=== PATIENT | male | born 1970 ===

== ENCOUNTER → 2018-07-16 | Outpatient (CLI) | payer OTHER | LOC: LAB 09:25 ==

== ENCOUNTER 2018-08-04 19:35 | Emergency (ER) | payer SELFPAY ==
[2018-08-04 19:58] VITALS: BMI 28.5
[2018-08-04 20:37] LABS: PH,URINE 6.5 (4.7-8.0); URINE BILIRUBIN NEGATIVE (NEGATIVE); URINE BLOOD TRACE-LYSED (NEGATIVE); URINE GLUCOSE (UA) NEGATIVE (NEGATIVE); URINE LEUKOCYTE ESTERASE MODERATE Leu/uL (NEGATIVE); URINE PROTEIN NEGATIVE mg/dL (<30 mg/dL); URINE UROBILINOGEN 0.2 E.U./dL (<1 E.U./dL)
[2018-08-04 20:38] LABS: URINE APPEARANCE CLEAR (CLEAR); URINE COLOR LIGHT YELLOW (YELLOW)
[2018-08-04 20:43] LABS: URINE RBC 0 - 2 /hpf (0-2)
[2018-08-04 20:52] VITALS: BP 115/76; PULSE 74; RESP 19; TEMP 97.6; O2SAT 99
--- NOTE | 2018-08-04 21:37 | ED PDOC ---
Arrival/HPI - General Chief Complaint: Male Genitourinary Time Seen by Provider: 08/04/18 19:44 Historian: Patient - History of Present Illness Narrative History of Present Illness (Text): 08/04/18 21:34 48-year-old male presents today with a 3-week history of pain and irritation to the foreskin with slight dysuria. Patient states he has been having these issues on and off for the past 3 months. Patient states the last episode has lasted the past 3 weeks. Patient denies testicular pain. No chest pain or shortness of breath. He denies fevers or chills. He denies abdominal pain. No dizziness or weakness. Patient states it is painful to retract the foreskin because there are small cuts along the foreskin. No other complaints Past Medical History - Provider Review Nursing Documentation Reviewed: Yes - Travel History Have you recently traveled outside [place] w/in the past 3 mons?: No - Infectious Disease Hx of Infectious Diseases: None - Tetanus Immunization Tetanus Immunization: Unknown - Cardiac Hx Cardiac Disorders: No - Pulmonary Hx Respiratory Disorders: No - Neurological Hx Neurological Disorder: No - HEENT Hx HEENT Disorder: No - Renal Hx Renal Disorder: No - Endocrine/Metabolic Hx Endocrine Disorders: Yes (HYPERGLYCEMIA 1-23-16) Hx Diabetes Mellitus Type 2: Yes - Hematological/Oncological Hx Blood Disorders: No - Integumentary Hx Dermatological Disorder: No - Musculoskeletal/Rheumatological Hx Musculoskeletal Disorders: No Hx Falls: No - Gastrointestinal Hx Gastrointestinal Disorders: No - Genitourinary/Gynecological Hx Genitourinary Disorders: No - Psychiatric Hx Psychophysiologic Disorder: No Hx Depression: No Hx Emotional Abuse: No Hx Physical Abuse: No Hx Substance Use: No Other/Comment: OCCASIONAL DRINKS - Suicidal Assessment Feels Threatened In Home Enviroment: No Family/Social History - Physician Review Nursing Documentation Reviewed: Yes Family/Social History: Unknown Family HX Smoking Status: Never Smoked Hx Alcohol Use: Yes (OCCASIONALLY) Hx Substance Use: No Allergies/Home Meds Allergies/Adverse Reactions: Allergies shrimp Allergy (Verified 08/04/18 19:58) ANAPHYLAXIS Home Medications: Home Meds Medication Instructions Recorded Confirmed Glipizide [Glipizide ER] 5 mg PO DAILY 08/04/18 08/04/18 metFORMIN [glucOPHAGE] 1,000 mg PO BID 08/04/18 08/04/18 Review of Systems - Review of Systems Constitutional: absent: Fatigue, Fevers Respiratory: absent: SOB, Cough Cardiovascular: absent: Chest Pain, Palpitations Gastrointestinal: absent: Abdominal Pain, Nausea, Vomiting Genitourinary Male: Dysuria, Other (pain to foreskin). absent: Frequency, Hematuria, Urinary Output Changes Musculoskeletal: absent: Arthralgias, Back Pain, Neck Pain Skin: absent: Rash, Pruritis Neurological: absent: Headache, Dizziness Psychiatric: absent: Anxiety, Depression Physical Exam Vital Signs Reviewed: Yes Vital Signs Temp Pulse Resp BP Pulse Ox 08/04/18 20:52 97.6 F 74 19 115/76 99 08/04/18 19:59 98.4 F 80 18 112/72 95 Temperature: Afebrile Blood Pressure: Normal Pulse: Regular Respiratory Rate: Normal Appearance: Positive for: Well-Appearing, Non-Toxic, Comfortable Pain Distress: None Mental Status: Positive for: Alert and Oriented X 3 - Systems Exam Head: Present: Atraumatic Mouth: Present: Moist Mucous Membranes Respiratory/Chest: Present: Clear to Auscultation, Good Air Exchange. No: Respiratory Distress, Accessory Muscle Use Cardiovascular: Present: Regular Rate and Rhythm, Normal S1, S2. No: Murmurs Abdomen: No: Tenderness, Distention, Rebound, Guarding Genitourinary Male: Present: Other (there is slight erythema noted to the head of the penis; chaparoned by dr. rojo). No: Normal External Genitalia (erythema and abrasions to internal aspect of foreskin. no edema. ), Circumcised Penis, Penile Discharge, Testicle Tenderness, Penile Swelling Back: Present: Normal Inspection Neurological: Present: GCS=15 Skin: Present: Warm, Dry, Normal Color Psychiatric: Present: Alert, Oriented x 3 Medical Decision Making ED Course and Treatment: 08/04/18 21:38 48-year-old male with pain and irritation to the foreskin and head of the penis. There is no paraphimosis, there is no phimosis. We will treat the patient with Keflex for urinary tract infection as well as Lotrimin for balanitis Patient was advised to follow-up with a urologist within the next 2 days. Patient was advised to take medications as prescribed and return immediately if symptoms worsen persist or if new concerning symptoms develop Patient verbalizes understanding of discharge instructions and need for immediate followup. All aspects of this case were discussed the attending of record. Impression: Balanitis, UTI Motrin every 6 hours as needed for pain Keflex twice daily times 7 days Lotrimin apply twice daily to the affected area Keep the skin clean and dry. Follow-up with urologist within the next 2 days Return immediately if symptoms worsen persist or if new concerning symptoms develop: High fevers, increasing pain, increasing redness, increasing swelling, purulent discharge - Lab Interpretations Lab Results: Urine Color Light yellow (YELLOW) 08/04/18 20:30 Urine Appearance Clear (CLEAR) 08/04/18 20:30 Urine pH 6.5 (4.7-8.0) 08/04/18 20:30 Ur Specific [place] <= 1.005 (1.005-1.035) 08/04/18 20:30 Urine Protein Negative mg/dL (<30 mg/dL) 08/04/18 20:30 Urine Glucose (UA) Negative mg/dL (NEGATIVE) 08/04/18 20:30 Urine Ketones Negative mg/dL (NEGATIVE) 08/04/18 20:30 Urine Blood Trace-lysed (NEGATIVE) H 08/04/18 20:30 Urine Nitrate Negative (NEGATIVE) 08/04/18 20:30 Urine Bilirubin Negative (NEGATIVE) 08/04/18 20:30 Urine Urobilinogen 0.2 E.U./dL (<1 E.U./dL) 08/04/18 20:30 Ur Leukocyte Esterase Moderate Ariel/uL (NEGATIVE) H 08/04/18 20:30 Urine RBC 0 - 2 /hpf (0-2) 08/04/18 20:30 Urine WBC 1 - 3 /hpf (0-6) 08/04/18 20:30 Ur Epithelial Cells None /hpf (0-5) 08/04/18 20:30 - Medication Orders Current Medication Orders: Discontinued Medications Cephalexin Monohydrate (Keflex) 500 mg PO STAT STA; Protocol Stop: 08/04/18 20:55 Last Admin: 08/04/18 21:12 Dose: 500 mg Disposition/Present on Arrival - Present on Arrival Any Indicators Present on Arrival: Yes History of DVT/PE: No History of Uncontrolled Diabetes: Yes Urinary Catheter: No History of Decub. Ulcer: No History Surgical Site Infection Following: None - Disposition Have Diagnosis and Disposition been Completed?: Yes Diagnosis: Balanitis, Urinary tract infection Disposition: HOME/ ROUTINE Disposition Time: 21:00 Patient Plan: Discharge Condition: GOOD Discharge Instructions (ExitCare): Balanitis (DC), Urinary Tract Infection, Adult (DC) Additional Instructions: Motrin every 6 hours as needed for pain Keflex twice daily times 7 days Lotrimin apply twice daily to the affected area Keep the skin clean and dry. Follow-up with urologist within the next 2 days Return immediately if symptoms worsen persist or if new concerning symptoms develop: High fevers, increasing pain, increasing redness, increasing swelling, purulent discharge Prescriptions: Cephalexin [Keflex] 500 mg PO BID #14 capsule Clotrimazole 1% Cream [Lotrimin 1%] 1 appl TP BID #1 tube Ibuprofen [Motrin] 600 mg PO Q6H PRN #20 tab PRN Reason: pain/fever reduction Referrals: Ambreen Fine MD [Primary Care Provider] - Follow up with primary Michael Bustamante MD [Staff Provider] - Follow up with primary Forms: [facility] [facility] (Faroese), WORK NOTE
== END 2018-08-04 21:48 | disposition home or self-care (01) ==
LOC: ED 19:35
DX: N48.1 Balanitis (principal); N39.0 Urinary tract infection, site not specified